=== PATIENT | male | born 1975 | race African-American/Black ===

== ENCOUNTER 2021-05-15 15:12 | Emergency (ER) | payer OTHER, SELFPAY ==
[2021-05-15 15:30] VITALS: BP 185/101; PULSE 88; RESP 20; TEMP 36; O2SAT 99
--- NOTE | 2021-05-15 15:30 | ED.ARRPALP ---
HPI - Arrhythmia/Palpitations General Chief Complaint: Arrhythmia/Palpitations Stated Complaint: High Blood Pressure Source: patient and RN notes reviewed Mode of arrival: ambulatory History of Present Illness HPI narrative: This is a 45-year-old male who presented to our urgent care with complaints of a headache that he has had for approximately 1 week patient notes that he took his blood pressure at home in it was 180s over 100s. Patient has been prescribed metoprolol 25 mg daily, he is noncompliant patient notes that his made him take his blood pressure pills today he noted that he did not take the metoprolol 25 mg he took with amlodipine 10 mg instead because he believed that the metoprolol was causing him to have a headache. Patient instructed to continue taking metoprolol 25 mg daily as instructed by his primary care physician. Patient educated on the effects of not being compliant with his hypertension medication. The patient denies SOB, CP, palpitation, extremity numbness, lightheadedness, dizziness, constipation, diarrhea, chills, or fever. bp 185/101 clonidine 0.1 mg given repeat blood pressure reading Related Data Home Medications Medication Instructions Recorded Confirmed amlodipine 10 mg PO DAILY 05/15/21 05/15/21 bupropion HCl 150 mg PO QAM 05/15/21 05/15/21 ergocalciferol (vitamin D2) 1,250 mcg PO DAILY 05/15/21 05/15/21 hydroxychloroquine 200 mg PO DAILY 05/15/21 05/15/21 metoprolol succinate 25 mg PO DAILY 05/15/21 05/15/21 multivitamin with folic acid 1 tablet PO DAILY 05/15/21 05/15/21 [Daily-Anthony (with folic acid)] Allergies Allergy/AdvReac Type Severity Reaction Status Date / Time No Known Allergies Allergy Verified 05/15/21 15:19 Review of Systems Review of Systems: A 14 organ system Review of Systems was performed and pertinent positives included in the HPI, otherwise remaining ROS is negative. [facility] Family History Family History (Updated 05/15/21 @ 15:30 by YOANNA Bae) Other Family history non-contributory Exam Narrative: GENERAL: This is a well-nourished, well-developed patient, in no apparent distress. HEAD: normocephalic, atraumatic. EYES: PERRL. Sclera clear/white. Vision is grossly intact. EARS: External ears normal, auditory canals clear and without drainage, TMs normal without perforation. Hearing grossly intact. NOSE: External nose normal with no obvious nasal discharge, nares without redness, no rhinorrhea. THROAT: Mucous membranes moist, posterior pharynx clear. NECK: Neck supple, non-tender without lymphadenopathy, masses or thyromegaly. CARDIOVASCULAR: Regular rate and rhythm without murmurs, gallops, or rubs. RESPIRATORY: Clear to auscultation. Breath sounds equal bilaterally. No wheezes, rales, or rhonchi. GASTROINTESTINAL: Abdomen soft, non-tender, nondistended. Bowel sounds are active. No hepato-splenomegaly, or palpable masses. No guarding. SKIN: warm, intact with no suspicious lesions or rash, good texture and turgor. NEURO: awake, alert, and oriented to person, place and time. There were no obvious focal neurologic abnormalities. Steady gait EXTREMITIES: Normal range of motion. No edema. No calf tenderness. Negative Homans sign bilaterally. BACK: Nontender without deformity or crepitance. No flank tenderness. Course Course Emergency Course: Patient was given clonidine 0.1 mg before discharge and he will get a prescription for his metoprolol 25 mg daily and follow-up with his primary care physician. Vital Signs Vital signs: Vital Signs Temperature 96.8 F L 05/15/21 15:30 Pulse Rate 88 05/15/21 15:30 Respiratory Rate 20 05/15/21 15:30 Blood Pressure 185/101 H 05/15/21 15:30 Pulse Oximetry 99 05/15/21 15:30 Temperature 96.8 F L 05/15/21 15:30 Pulse Rate 88 05/15/21 15:30 Respiratory Rate 20 05/15/21 15:30 Blood Pressure 171/102 H 05/15/21 15:58 Pulse Oximetry 99 05/15/21 15:30 MDM - Arrhythmia/Palpitations Di
--- NOTE | 2021-05-15 15:32 | ECG_ITS ---
Measurements Intervals [place] Rate: 85 P: 50 SC: 112 QRS: -9 QRSD: 113 T: -4 QT: 371 QTc: 442 Interpretive Statements SINUS RHYTHM WITH SHORT SC INTERVAL INTRAVENTRICULAR CONDUCTION DELAY EARLY PRECORDIAL R/S TRANSITION VOLTAGE CRITERIA FOR LVH BORDERLINE T WAVE ABNORMALITY- INFERIOR LEADS BASELINE ARTIFACT- I, II, III, AVR, AVL, AVF BORDERLINE ECG Electronically Signed On 05-15-2021 15:50:14 CDT by Denzel Patel D.O.
[2021-05-15] MEDS: cloNIDine HCL 0.1 MG TABLET PO ×2 (15:43→16:10)
[2021-05-15 15:58] VITALS: BP 171/102
[2021-05-15 16:25] VITALS: BP 169/100
== END 2021-05-15 16:30 | disposition home or self-care (01) ==
PROVIDERS: Emergency Provider Nurse Practitioner; PCP Internal Medicine
DX: I16.9 Hypertensive crisis, unspecified (principal)
CPT/HCPCS: 93005; 99213; A9270; G0463